=== PATIENT | female | born 1990 | race Caucasian/White ===

== ENCOUNTER 2021-11-19 14:40 | Emergency (ER) | payer OTHER ==
[~2021-11-19] VITALS: Ht 172.7 cm; Wt 122.7 kg
[2021-11-19 14:45] VITALS: TEMP 98.2
[2021-11-19] MEDS ORDERED: NORCO 325 MG-51 TAB PO (15:23)
[2021-11-19 15:38] VITALS: BP 135/82; PULSE 59
== END 2021-11-19 15:38 | disposition home or self-care (01) ==
LOC: COL.ER 14:40
DX: M54.50 Low back pain, unspecified (principal); Z87.39 Personal history of other diseases of the musculoskeletal system and connective tissue
CPT/HCPCS: J1885

== ENCOUNTER 2022-01-30 20:13 | Emergency (ER) | payer OTHER ==
[~2022-01-30] VITALS: Ht 172.7 cm; Wt 118.2 kg
[~2022-01-30 20:13] MED LIST: NORCO 325 MG-51 TAB PO
[2022-01-30 20:40] VITALS: BP 126/82; PULSE 62; TEMP 98.6
== END 2022-01-30 21:35 | disposition home or self-care (01) ==
LOC: COL.ER 20:13
DX: S61.032A Puncture wound without foreign body of left thumb without damage to nail, initial encounter (principal); W46.1XXA Contact with contaminated hypodermic needle, initial encounter